=== PATIENT | female | born 1980 | race Hispanic/Latino ===

== ENCOUNTER → 2024-01-07 10:45 | Outpatient (REF) | payer OTHER, SELFPAY ==
[2024-01-07 11:59] LABS: HDL Cholesterol 51 mg/dl; LDL Cholesterol, Calculated 152 mg/dl; Total Cholesterol 226 mg/dl (50-199); Triglyceride 118 mg/dl (10-149); Very Low Density Lipoprotein 23 mg/dl (0-30)
== END ==
LOC: CLINIC 10:45
PROVIDERS: ATTENDING PHYSICIAN Nurse Practitioner Acute Care
DX: E78.5 Hyperlipidemia, unspecified (principal); E55.9 Vitamin D deficiency, unspecified; Z12.31 Encounter for screening mammogram for malignant neoplasm of breast
CPT/HCPCS: 36415; 77063; 77067; 80061; 82306

== ENCOUNTER → 2024-01-19 09:08 | Outpatient (REF) | payer OTHER, SELFPAY ==
[2024-01-22 12:10] LABS: HPV, High Risk Not Detected; HPV, High Risk Source Cervical
== END ==
LOC: CLINIC 09:08
PROVIDERS: ATTENDING PHYSICIAN Nurse Practitioner Acute Care
DX: Z12.4 Encounter for screening for malignant neoplasm of cervix (principal)
CPT/HCPCS: 87624; G0123